=== PATIENT | female | born 2000 | race Caucasian/White ===

== ENCOUNTER 2020-10-08 11:42 | Emergency (ER) | payer BC ==
[2020-10-08] MEDS ORDERED: ONDANSETRON 4 MG/2 ML VIAL ONE ×3 (12:49→15:53)
[2020-10-08] MEDS ORDERED: NA CHLORIDE 0.9% 0 ML ONE (12:49)
[2020-10-08] MEDS ORDERED: FAMOTIDINE 20 MG/2 ML VIAL IV ONE ×2 (12:49→12:54)
[2020-10-08 12:53] LABS: Absolute Lymphocytes (CBC) 1.1 K/uL (0.7-4.9); Basophils % 0.1 % (0-1.3); Hematocrit 41.1 % (36.0-45.0); Lymphocytes % 4.4 % (15.3-44.8); MPV 10.2 fL (7.6-11.3); RBC Red Blood Cell Count 4.41 M/uL (3.86-4.86)
[2020-10-08] MEDS ORDERED: NA CHLORIDE 0.9% 1,000 ML ONE (12:54)
[2020-10-08 12:57] LABS: Urine Blood Negative (Negative); Urine Glucose Negative (Negative); Urine Protein 1+ (Negative); Urine Specific Gravity >=1.030 (1.005-1.030)
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
[2020-10-08 13:09] LABS: BUN Blood Urea Nitrogen 17 mg/dL (7-18); Bicarbonate 24 mmol/L (21-32); Glucose Level 180 mg/dL (74-106); HCG, Quantitative 107 mIU/mL (1-3); Potassium 3.2 mmol/L (3.5-5.1); Sodium Level 135 mmol/L (136-145)
[2020-10-08 15:22] LABS: Blood Morphology Comment NOT SEEN (NOT SEEN); Platelet Estimate ADEQ
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
[2020-10-08 16:31] VITALS: TEMP 97.8
[2020-10-08 16:32] VITALS: O2SAT 100
[2020-10-08 16:36] VITALS: BP 100/52
== END 2020-10-08 16:24 | disposition home or self-care (01) ==
LOC: EDBD 11:42 → ER 11:42
DX: Z04.41 Encounter for examination and observation following alleged adult rape (principal); R11.2 Nausea with vomiting, unspecified
CPT/HCPCS: 96361; 85025; 80048; 36415; 86900; 81025; 86901; 84702; 81003; 70450; 72125; 96375; 96374; 99284; J2405 ×2; J7030